=== PATIENT | female | born 1995 | race Two or more races ===

== ENCOUNTER 2021-01-04 18:26 | Emergency (ER) | payer BC ==
[2021-01-04 18:36] VITALS: TEMP 98; BMI 17.6
[2021-01-04 21:01] LABS: BASO % 0.8 % (0-2.0); EOS % 7.4 % (0-4.5); HEMATOCRIT 38.2 % (32.4-45.2); HEMOGLOBIN 12.7 GM/dL (10.7-15.3); LYMPH % 36.1 % (8-40); MCH 27.1 pg (25.7-33.7); MCHC 33.2 g/dl (32.0-36.0); MEAN CELL VOLUME 81.7 fl (80-96); MEAN PLT VOLUME 9.5 fl (7.5-11.1); MONO % 12.7 % (3.8-10.2); PLATELET COUNT 163 10^3/uL (134-434); RBC 4.67 M/mm3 (3.60-5.2); RDW 14.4 % (11.6-15.6)
[2021-01-04 22:29] VITALS: BP 110/62; PULSE 64
== END 2021-01-04 22:32 | disposition home or self-care (01) ==
LOC: JER 18:26
DX: M79.604 Pain in right leg (principal); M79.605 Pain in left leg
CPT/HCPCS: 36415; 85025; 93970-TC; 99284-25